=== PATIENT | female | born 1960 | race Two or more races ===

== ENCOUNTER 2022-11-13 11:32 | Emergency (ER) | payer BC, MEDICAID ==
[~2022-11-13] VITALS: Ht 162.6 cm; Wt 68.0 kg
[2022-11-13] MEDS ORDERED: IBUPROFEN 600MG TABLET PO ONE (12:15)
[2022-11-13 12:51] VITALS: BP 135/74
== END 2022-11-13 14:20 | disposition home or self-care (01) ==
LOC: ER 11:32
DX: M54.6 Pain in thoracic spine (principal); R51.9 Headache, unspecified; V49.9XXA Car occupant (driver) (passenger) injured in unspecified traffic accident, initial encounter; Y93.89 Activity, other specified; Y92.89 Other specified places as the place of occurrence of the external cause; Y99.8 Other external cause status
CPT/HCPCS: 71045; 72070; 99284